=== PATIENT | male | born 1940 | race Caucasian/White ===

== ENCOUNTER 2016-06-07 15:30 | Inpatient (IN) | payer MEDICARE ==
--- NOTE | ~2016-06-07 | HP ---
History And Physical [address] [place]. [address] NAME: SATURNINO ELAINE : 42 STATUS : ADM IN [facility]#: [id number] AGE: 76 ADM/REG DATE : 06/07/16 MR#: [id number] REPORT SERV DATE: 06/07/16 DICTATED BY: SERGEI SILVA DATE: 06/07/16 REPORT STATUS : Draft TRANSCRIBED BY: MODL DATE: 06/07/16 DATE OF ADMISSION: 06/07/2016 REASON FOR ADMISSION: NSTEMI coronary artery disease. HISTORY OF PRESENT ILLNESS: This is a pleasant 76-year-old, obese male with a history of hypertension, type 2 diabetes mellitus, hyperlipidemia, obstructive sleep apnea who presented to the emergency room at [facility] on 06/06/2016 with chest pain, nausea, and shortness of breath. In the emergency room, the patient's symptoms did improve with morphine, aspirin, and nitroglycerin. In the emergency room, his initial troponin was elevated at 0.16 which later priscila to 2.2. His EKG showed sinus tachycardia with right bundle branch block. The patient was admitted with non-ST elevation NH and taken for cardiac catheterization today and found to have severe multivessel coronary artery disease including a 90% mid to distal LAD and 90% first diagonal, 90% proximal second obtuse marginal, 90% proximal first obtuse marginal, 90% proximal RCA, and 50% proximal right PDA. His ejection fraction is calculated around 40% which is down from a previous echocardiogram which he said was done a week ago which showed an ejection fraction of around 65% with no mention of valvular abnormality. Echocardiogram this admission has not been done yet. The patient was transferred here for evaluation of CAB. Of note, the patient has been on Plavix for history of lower extremity stents with last dose on 06/05/2016. Currently, the patient is lying in bed with no complaints of chest pain or shortness of breath. PAST MEDICAL HISTORY: Significant for hypertension, hyperlipidemia, moderate left ventricular hypertrophy with recent ejection fraction around 65%, PVD, mild bilateral carotid disease, AAA measuring around 4.[address] scan, type 2 diabetes mellitus, obstructive sleep apnea compliant with CPAP, obesity, BPH, bursitis, questionable CKD. SURGICAL HISTORY: Left shoulder replacement; L3-L4 back surgery; history of bilateral lower extremity stents, three in his right leg and two in his left; and he has also had a spinal stimulator placed. FAMILY HISTORY: Reviewed and noncontributory. SOCIAL HISTORY: He is a semi-retired business dentist/owner. He is with children. No history of tobacco abuse, use of illicit drugs, or alcohol use. ALLERGIES: NO KNOWN DRUG ALLERGIES. HOME MEDICATIONS: Loratadine 10 mg p.o. daily, fluticasone 1 spray in each nostril every day, Neurontin 300 mg 3 times a day, Plavix 75 mg once daily, nystatin and triamcinolone cream 30 g to affected area as directed, glimepiride 4 mg tab two times a day, metoprolol extended release 100 mg p.o. daily, Valium 5 mg tablet p.o. q.8 hours as needed, Lidocaine ointment 5% topically one to four times per day at site of spinal stimulator as directed, oxycodone 7.5/325 one tab p.o. q.12 hours as needed, atorvastatin 40 mg p.o. daily, vitamin D 69046 units every 2 weeks, Flomax 0.4 mg p.o. daily, metformin 1000 mg p.o. twice a day, dutasteride 0.5 mg p.o. daily, clotrimazole betamethasone 45 g cream to the surrounding area History And Physical [address] [address] NAME: SATURNINO ELAINE : 42 STATUS : ADM IN [facility]#: [id number] AGE: 76 ADM/REG DATE : 06/07/16 MR#: [id number] REPORT SERV DATE: 06/07/16 DICTATED BY: SERGEI SILVA DATE: 06/07/16 REPORT STATUS : Draft TRANSCRIBED BY: QUINCY DATE: 06/07/16 as directed, lisinopril hydrochlorothiazide 20/12.5 once daily, and Singulair 10 mg p.o. daily. ALLERGIES: NO KNOWN DRUG ALLERGIES. REVIEW OF SYSTEMS: Negative other than HPI. LABS: From today white blood cell count 7.5, hemoglobin 12.3, hematocrit 37.7, and platelets 190. From 06/06/2016; sodium 143, potassium 3.7, chloride 101, bicarbonate 28, BUN 21, creatinine 1.3, glucose 300, hemoglobin A1c 5.9. PHYSICAL EXAMINATION: VITAL SIGNS: From today temperature 98 degrees, heart rate 77, blood pressure 141/77, respiratory rate 16, and O2 saturation 96% on 2 L. GENERAL: A pleasant obese male, with no acute distress. NEURO: Alert and oriented x3. Pupils exhibit PERRLA. HEENT: Head is normocephalic and atraumatic. Neck is supple. Sclerae clear. LUNGS: Clear to auscultation bilaterally. Normal effort. CARDIAC: S1, S2 with no murmurs, rubs, or gallops. ABDOMEN: Obese, soft, nontender with active bowel sounds. EXTREMITIES: Free of cyanosis, clubbing, or edema. ASSESSMENT AND PLAN: This is a pleasant 76-year-old, male with an extensive past medical history, who presented to the emergency room yesterday at [facility] with complaints of chest pain and shortness of breath, found to have elevated troponin consistent with NSTEMI taken for cardiac catheterization today and found to have severe 5- vessel coronary artery disease with ejection fraction around 40%. The patient needs a five- vessel CAB. I discussed the risks and benefits of surgery as well as his STS risk scores. STS risk stratification for him in this particular surgery includes an overall mortality of 4.4%, morbidity mortality of 32%. I discussed these findings in relation to expectations for surgery and recovery, and he is willing to proceed. Unfortunately, we will have to wait for 5 days after his last dose of Plavix to begin surgery. I discussed this with him and although he is upset, he is agreeable to wait until Sunday. We will put him on the schedule for Sunday. Until that time, I will request records from Dr. Smith regarding his echocardiogram last week and most recent carotid ultrasound. We will get a noncontrast CT scan of his chest to look at his lungs to rule out any acute process and to evaluate his AAA. I will also get a venous mapping study of his lower extremities to evaluate for conduit and BMP and CBC, and if creatinine is elevated significantly, we would consider Renal consult prior to proceeding with surgery. SHIRA/MODL Sergei Silva NP History And Physical [address] [address] NAME: SATURNINO ELAINE : 44 STATUS : ADM IN [facility]#: [id number] AGE: 76 ADM/REG DATE : 06/07/16 MR#: [id number] REPORT SERV DATE: 06/07/16 DICTATED BY: SERGEI SILVA DATE: 06/07/16 REPORT STATUS : Draft TRANSCRIBED BY: QUINCY DATE: 06/07/16 / [id number] CC: MD Stan Kam
--- NOTE | ~2016-06-07 | CN ---
Consultation Report [address] [place]. [address] NAME: SATURNINO ELAINE : 44 STATUS : ADM IN PAT#: [id number] AGE: 76 ADM/REG DATE : 06/07/16 MR#: [id number] REPORT SERV DATE: 06/13/16 DICTATED BY: SADE NEVAREZ DATE: 06/13/16 REPORT STATUS : Draft TRANSCRIBED BY: MODL DATE: 06/13/16 DATE OF CONSULTATION: CONSULTATION REASON: Diabetic management. HISTORY OF PRESENT ILLNESS: This is a 76-year-old male patient, who is currently admitted after the surgery, CABG under Dr. Serrnao, was consulted for diabetic management. He has been diabetic for many years. He has been on Glucophage and Amaryl at home and his A1c was found to be 6.6. He does check his sugars regularly and he has believed his fasting sugar is running around 130s. Currently, he is on postop insulin drip and the patient has improved and extubated from the ventilator, off all the pressors, and he is prepared to be transferred to the cardiac tele. However, he is not eating the meals here that much. Previously seen, no fever, no chills. No shortness of breath or chest pains. No abdominal pain. Passed gas. No hematuria. The patient has a central line and also a Finn catheter. All fourteen systems are reviewed and negative. PAST MEDICAL HISTORY: 1. Hypertension. 2. Hyperlipidemia. 3. Peripheral vascular disease. 4. AAAs. 5. Diabetes with neuropathy. 6. Sleep apnea. The patient is compliant with the CPAP. 7. Obesity. 8. BPH. 9. Bursitis. 10.More likely CKD. SURGICAL HISTORY: 1. Left shoulder replacement. 2. L3-L4 back surgery. 3. Bilateral leg stents. 4. Spinal stimulator placement. SOCIAL HISTORY: 1. He is a business farm owner operator. 2. He is and has children. Denies any tobacco, drug, and alcohol use. Consultation Report [address] [place]. [address] NAME: SATURNINO ELAINE : 44 STATUS : ADM IN PAT#: [id number] AGE: 76 ADM/REG DATE : 06/07/16 MR#: [id number] REPORT SERV DATE: 06/13/16 DICTATED BY: MINNIESADE DATE: 06/13/16 REPORT STATUS : Draft TRANSCRIBED BY: MODSofi DATE: 06/13/16 ALLERGIES: NO KNOWN DRUG ALLERGIES. MEDICATIONS AT HOME: 1. Lipitor 40 mg once at nighttime. 2. Keflex 500 mg every six hours. 3. Plavix 75 mg once a day. 4. Clotrimazole 45 g twice a day as needed. 5. Valium 5 mg every 8 hours as needed. 6. Avodart 0.5 mg once a day. 7. Vitamin D once a day. 8. Flonase sprays once a day. 9. Neurontin 300 mg three times a day. 10.Amaryl 4 mg twice a day. 11.Lisinopril/hydrochlorothiazide 20/12.5 once a day. 12.Claritin 10 mg once a day. 13.Metformin 1000 mg twice a day. 14.Metoprolol 100 mg once a day. 15.Singulair 10 mg once a day. 16.Nystatin twice a day. 17.Indocet 7.5 mg twice a day. 18.Flomax 0.4 mg once a day. 19.Again, the patient is not using insulin at home. PHYSICAL EXAMINATION: VITAL SIGNS: Blood pressure 114/66, saturation is 92% with 3 L of oxygen. Heart rate 69, respiratory rate was 20. GENERAL APPEARANCE: He is alert, awake, obese, comfortable-looking male patient. NECK: Has a right side IJ central catheter. HEENT: Pupils are equal and round. Conjunctivae not anemic. CHEST: Has rhonchi mainly on the right side, but also has some left side rhonchi and wheezing. CARDIOVASCULAR: Has a regular rhythm and rate. ABDOMEN: Bowel sounds present and obese. EXTREMITIES: Has a trace 1 pitting edema with a DONNA hose stocking on it. LABORATORY: Showed sodium 146, potassium 5.0, chloride 114, bicarb 24, BUN 20, creatinine 1.18, and glucose 111. ASSESSMENT AND PLAN: 1. Diabetes mellitus. 2. Sleep apnea. 3. Status post coronary artery bypass graft. 4. Obesity. 5. Coronary artery disease. Consultation Report [address] [place]. [address] NAME: SATURNINO ELAINE : 44 STATUS : ADM IN PAT#: [id number] AGE: 76 ADM/REG DATE : 06/07/16 MR#: [id number] REPORT SERV DATE: 06/13/16 DICTATED BY: SADE NEVAREZ DATE: 06/13/16 REPORT STATUS : Draft TRANSCRIBED BY: QUINCY DATE: 06/13/16 6. Hypertension. We will transition the insulin drip to subcutaneous insulin and we will follow the clinical response. Thank you for this consultation. SANA/QUINCY Sade Nevarez M.D. / [id number]
--- NOTE | ~2016-06-07 | DS ---
Discharge Summary [facility] [address] [place]. [address] NAME: SATURNINO ELAINE : 44 STATUS : DIS IN PAT#: [id number] AGE: 76 ADM/REG DATE : 06/07/16 MR#: [id number] REPORT SERV DATE: 06/29/16 DICTATED BY: JASON HARRIS DATE: 06/28/16 REPORT STATUS : Draft TRANSCRIBED BY: QUINCY DATE: 06/28/16 Data Collection from hospitalization DISCHARGE DIAGNOSES: 1. Coronary artery disease, status post coronary artery bypass. 2. Chronic systolic heart failure. 3. Type 2 diabetes mellitus. 4. Hyperlipidemia. 5. Acute kidney injury. 6. Hypertension. 7. Peripheral vascular disease. 8. Abdominal aortic aneurysm. 9. Obstructive sleep apnea. 10.Obesity. 11.Benign prostatic hypertrophy. 12.Bursitis. 13.Non-ST elevation myocardial infarction. CONSULTATIONS: Sade Nevarez M.D. PROCEDURES PERFORMED: 1. Median sternotomy due to extracorporeal circulation, extracorporeal circulation, urgent coronary artery bypass grafting x4, transesophageal echocardiogram, endoscopic vein harvest from the right leg, sternal plating with Biomet System, and Prevena dressing placement on 06/12/2016. 2. CT scan of the chest without contrast on 06/07/2016. 3. Vein mapping of the bilateral lower extremities on 06/08/2016. 4. Carotid blood flow study on 06/09/2016. 5. Renal ultrasound on 06/15/2016. MEDICATIONS: Aspirin 81 mg daily, Lipitor 40 mg at bedtime, Plavix 75 mg daily, Avodart 0.5 mg daily, vitamin D 50,000 units every two weeks, Flonase nasal spray one spray nasally daily, Neurontin 300 mg three times a day, Amaryl 4 mg with breakfast and supper, Glucophage 1000 mg with breakfast and supper, Claritin 10 mg daily, Singulair 10 mg daily, Lopressor 12.5 mg every 12 hours, Flomax 0.4 mg daily, Gyne-Lotrimin 45 g vaginally twice a day as needed, nystatin-triamcinolone cream one application topically twice a day, and Roxicodone 5 mg every six hours as needed. CONDITION AT DISCHARGE: Stable. DISPOSITION: The patient was discharged to [facility] on an 1800-calorie cardiac/diabetic diet with activities as instructed. HOSPITAL COURSE: This is a 76-year-old man who has a history of hypertension, type 2 diabetes mellitus, hyperlipidemia, and obstructive sleep apnea who presented to the emergency room at [facility] on 06/06/2016 with chest pain, nausea, and shortness of breath. In the emergency room, the patient's symptoms did improve with morphine, aspirin, and nitroglycerin. In the emergency room, his initial troponin was Discharge Summary [address] [address] NAME: SATURNINO ELAINE : 44 STATUS : DIS IN PAT#: [id number] AGE: 76 ADM/REG DATE : 06/07/16 MR#: [id number] REPORT SERV DATE: 06/29/16 DICTATED BY: JASON HARRIS DATE: 06/28/16 REPORT STATUS : Draft TRANSCRIBED BY: QUINCY DATE: 06/28/16 elevated at 0.16, which later priscila to 2.2. His EKG showed sinus tachycardia with right bundle-branch block. He was felt to have had a non-ST elevation myocardial infarction. He had undergone a cardiac catheterization on the day of this admission and was found to have severe multivessel coronary artery disease including 90% mid to distal LAD and 90% first diagonal, 90% proximal second obtuse marginal, 90% proximal first obtuse marginal, 90% proximal RCA, and 50% proximal right PDA. His ejection fraction was calculated around 40%, which was down from a previous echocardiogram, which he said was done about a week prior to this admission, which revealed ejection fraction around 65% with no mention of valvular abnormality. The patient was transferred here as it was felt that he would need to undergo coronary artery bypass grafting. He was admitted to the hospital for further evaluation and treatment. Upon admission, a CT scan of the chest without contrast was performed. Unfortunately, we would have to wait five days after his last dose of Plavix to begin surgery. This was discussed with the patient, and although he was upset, he was agreeable to wait. The following day, vein mapping of the bilateral lower extremities was performed. Glucose levels were controlled on sliding scale insulin. He was on a statin agent for hyperlipidemia. On 06/09/2016, a carotid blood flow study was performed. He remained stable. Plans were being made to proceed with surgical intervention. On 06/12/2016, the patient was taken to the operating room where he underwent the above-mentioned procedure. He tolerated this well, and there were no complications. On postop day #1, he was seen by Dr. Sade Nevarez regarding diabetic management. He has been a diabetic for many years. He had been on Glucophage and Amaryl at home. His hemoglobin A1c was 6.6. He does check his sugars regularly and he believes that his fasting sugar is running around 130s. Currently, he was postop on an insulin drip. He had been extubated from the ventilator and was off all pressors. He was prepared to be transferred to the Cardiac Telemetry Unit. He was not eating much. Creatinine level was 1.18. We were going to transition the insulin drip to subcutaneous insulin and we would follow the clinical response. Blood pressure was controlled. On 06/14/2016, he had diminished urine output. He has had no issues overnight. He was not eating or drinking well. He has not ambulated as of yet. He had no new complaints. Pacing wires were removed. Amaryl was going to began. Levemir was started. The next day, he said he was feeling better. He was able to move around and sit up in the chair. He was eating a little. He was evaluated by Physical Therapy. He underwent diabetes education. On 06/16/2016, he has had some confusion overnight. He had no major pain complaints. He was mobilizing well. His confusion resolved. IV fluids were stopped. He does use a CPAP for his obstructive sleep apnea. Creatinine level was improving. Discharge planning was performed. Sliding scale insulin and low-dose Amaryl were being given. His Amaryl was increased. On 06/19/2016, he did have a bowel movement. He denied any new problems. He reported having a good appetite. Creatinine level was 1.37. Discharge instructions were given. Due to his improved and stable condition, he was discharged to [facility] with the above-stated instructions. Information collected by: Hanane Grimes I submit the above information as my discharge summary. Discharge Summary [id number] [facility] [place]. [address] NAME: SATURNINO ELAINE : 44 STATUS : DIS IN [facility]#: [id number] AGE: 76 ADM/REG DATE : 06/07/16 MR#: [id number] REPORT SERV DATE: 06/29/16 DICTATED BY: JASON HARRIS DATE: 06/28/16 REPORT STATUS : Draft TRANSCRIBED BY: MODL DATE: 06/28/16 TG/QUINCY Jason Harris MD / [id number] CC: MD KUNAL Kam T[facility]
--- NOTE | ~2016-06-07 | OP ---
Record Of [address] [place]. [address] NAME: SATURNINO VERGARA : 44 STATUS : ADM IN PAT#: [id number] AGE: 76 ADM/REG DATE : 06/07/16 MR#: [id number] REPORT SERV DATE: 06/12/16 DICTATED BY: WILBUR HARRIS DATE: 06/12/16 REPORT STATUS : Draft TRANSCRIBED BY: MODL DATE: 06/12/16 DATE OF PROCEDURE: 06/12/2016 PAYROLL ACCOUNTING SPECIALIST: Bobby Spann. ANESTHESIOLOGIST: Marky Trotter MD REFERRING PHYSICIAN: Dr. Smith from [place]. PREOPERATIVE DIAGNOSES: 1. Zpw-RG-hpcjoenms myocardial infarction. 2. Three-vessel coronary artery disease. 3. Hypertension. 4. Hyperlipidemia. 5. Peripheral vascular disease. 6. Diabetes mellitus type 2. 7. Obstructive sleep apnea. 8. Morbid obesity. 9. Chronic obstructive pulmonary disease. POSTOPERATIVE DIAGNOSES: 1. Nxi-XN-iwxdfhuop myocardial infarction. 2. Three-vessel coronary artery disease. 3. Hypertension. 4. Hyperlipidemia. 5. Peripheral vascular disease. 6. Diabetes mellitus type 2. 7. Obstructive sleep apnea. 8. Morbid obesity. 9. Chronic obstructive pulmonary disease. OPERATION/PROCEDURE PERFORMED: 1. Median sternotomy due to extracorporeal circulation. 2. Extracorporeal circulation. 3. Urgent coronary artery bypass grafting x4. 4. Transesophageal echocardiogram. 5. Endoscopic vein harvest of right leg. 6. Sternal plating with Biomet system. 7. Prevena dressing placement. COMPLICATIONS: None. TUBES AND DRAINS: A 32-Slovenian straight to the left pleural space, 32-Slovenian straight to the mediastinum, atrial and ventricular wires. POSTOPERATIVE CONDITION: Stable to CVICU. Record Of [address] [place]. [address] NAME: SATURNINO VERGARA : 44 STATUS : ADM IN PAT#: [id number] AGE: 76 ADM/REG DATE : 06/07/16 MR#: [id number] REPORT SERV DATE: 06/12/16 DICTATED BY: WILBUR HARRIS DATE: 06/12/16 REPORT STATUS : Draft TRANSCRIBED BY: MODL DATE: 06/12/16 INTRAOPERATIVE FINDINGS: Extremely diffusely diseased coronary arteries. The vein was 5 to 6 mm thick. The mammary was 2 to 3 mm in the outstanding conduit. On transesophageal echo, there was no MR, no AI, no . Only finding of note on the left coronary cusp was slightly thickened with poor excursion, the valve appeared to have normal function with no abnormally high gradient. DETAILS OF CARDIOPULMONARY BYPASS GRAFTIN. Graft #1, left internal mammary artery, left anterior descending, this was 1.75 diffusely diseased target. 2. Reverse greater saphenous vein graft to D1, this was again a 1.75 mm diffusely diseased target. 3. Reverse greater saphenous vein graft to obtuse marginal #1, inferior division, this was 1.75 mm and diffusely diseased. 4. Reverse greater saphenous vein graft to posterior descending artery, this was 2 mm diffusely diseased. INDICATIONS FOR PROCEDURE: Mr. Vergara is a 76-year-old gentleman who has been experiencing chest pain, shortness of breath, who presented to [facility] with complaints of angina and was found to have a mildly elevated troponin and was subsequently hospitalized. He was transferred to [facility] for definitive management, Plavix washout was allowed, and he was brought to the operating room. DETAILS OF PROCEDURE: The patient was brought to the operating room and placed supine on the operating room table. After satisfactory induction of general endotracheal anesthesia, the patient was prepped and draped in the usual sterile fashion. Working simultaneously median sternotomy was performed while endoscopic vein harvest was performed from the right leg. Skin and subcutaneous tissues were divided. Clavipectoral fascia was divided. Sternum was divided in the midline. Hemostasis was obtained. The Rultract retractor was placed and the internal mammary artery was harvested in a pedicle fashion. It was takeoff under the subclavian vein to the bifurcation of the diaphragm. Systemic heparinization was achieved. After three minutes, the pedicle was clipped and divided of the bifurcation, it was infiltrated with papaverine. The Rultract retractor was removed. A 32-Slovenian straight chest tube was placed in the left pleural space and exteriorized. The thymic tissue was divided in the midline. Pericardium was opened. The midline T'd at the diaphragm. Pericardial well was created. Ascending aorta was cannulated at the base of the innominate. Dual stage venous cannula was placed through pursestring in the right atrial appendage. Antegrade root vent cardioplegia tack was placed. The conduit was brought up, reversed, and prepared for bypass. Cardiopulmonary bypass was initiated after documentation of an adequate ACT. The targets were inspected. The posterior descending artery was felt to be diffusely diseased. The obtuse marginal #1 was mostly a lead pipe with the inferior division having one soft spot. The first diagonal was extremely diffusely diseased and the LAD was diffusely plaqued all the way down the artery. The cross-clamp was brought up, heart was arrested with cold antegrade cardioplegia, switching to intermittent aliquots of cold antegrade cardioplegia every 15 to 20 minutes throughout the remainder of the cross- clamp. The vein was reversed and spatulated and grafts were performed as mentioned in the findings. All distal anastomosis were performed with 8-0 Surgipro. Once the three Record Of Operation [facility] [address] [place]. [address] NAME: SATURNINO VERGARA : 44 STATUS : ADM IN PAT#: [id number] AGE: 76 ADM/REG DATE : 06/07/16 MR#: [id number] REPORT SERV DATE: 06/12/16 DICTATED BY: WILBUR HARRIS DATE: 06/12/16 REPORT STATUS : Draft TRANSCRIBED BY: MODSofi DATE: 06/12/16 saphenous vein graft anastomoses had been done, the veins had been cut to length, spatulated, and then three proximal aortotomies were performed enlarged with a 4.5 mm punch and a running continuous anastomosis was performed using a 6-0 Prolene. Vein markers were placed. The AMAYA was then brought down through a wide V in the pericardium. The LAD was opened in a soft spot that I could find. The artery was diffusely diseased and heavily plaqued. The AMAYA was spatulated, cut to length, and then a running continuous anastomosis was performed using 8-0 Surgipro. The artery was checked with a Doppler, at the end of the completion of the anastomosis, there was flow both distal and proximal to the anastomosis and in the graft. Pedicle was attached to the heart in two places using 6-0 Prolene and the cross-clamp was removed. Atrial and ventricular pacing wires were placed. The patient was ultimately able to be weaned from cardiopulmonary bypass without inotropic support. Protamine was administered. The patient was decannulated. All cannulation sites were oversewn with 4-0 Prolene. Hemostasis was obtained. The pericardium was loosely reapproximated over the ascending aorta and the right ventricle. A 32-Slovenian chest tube was placed beneath the sternum. The sternum was reapproximated with eight stainless steel sternal wires, some of these were double wires. In addition, bilateral small pectoral flaps were raised to the edge of the sternum and one 180-degree Biomet blue plate was placed on the manubrium with four #16 screws and then two X plates were placed on the body of the sternum between the wires using eight #16 screws apiece. The clavipectoral fascia was reapproximated using running #1 StrataFix. The subcutaneous tissues closed using running #1 StrataFix and the skin using 2-0 Quill. Prevena dressing was placed. He was transferred to CVICU in critical, stable condition. Pebbles/SHAYLEEL Wilbur Harris MD / [id number] CC: MD Mao Kam M.D.
[~2016-06-07 15:30] MED LIST: AMARYL4 PO; ASA5GR PO; ETODOLAC ER400 MG OR; FLOMAX4 PO; GLUCOPHAGE1000 MG PO; NORV10 PO; TOPXL100 PO; TRICOR145 PO; VYTORIN 10/80 T1 TAB PO; ZESTORETIC PO
[2016-06-07 16:43] LABS: ASCORBIC ACID (UR NOT ORDER) NEG (NEG); BILIRUBIN, URINE NEGATIVE (NEG); KETONE, URINE NEGATIVE (NEG); LEUKOCYTE ESTERASE(NOT OR NEG (NEG); WBC (NOT ORDERED) (RFLEX) 1 (0-5)
[2016-06-07] MEDS ORDERED: LIPITOR40 PO (17:08)
[2016-06-07] MEDS ORDERED: ENDOCET1 TA1 PO (17:09)
[2016-06-07] MEDS ORDERED: AVODART PO (17:10)
[2016-06-07] MEDS ORDERED: VITD PO (17:12)
[2016-06-07] MEDS ORDERED: SINGULAIR1 PO (17:13)
[2016-06-07] MEDS ORDERED: CLARIT10 PO (17:17)
[2016-06-07] MEDS ORDERED: [UNRECOGNIZED DRUG - OTHER] V (17:17)
[2016-06-07] MEDS ORDERED: FLONASE NAS (17:18)
[2016-06-07] MEDS ORDERED: NEUR300 PO (17:18)
[2016-06-07] MEDS ORDERED: PLAVIX PO (17:19)
[2016-06-07] MEDS ORDERED: NYSTATIN-TRIAMC15 GM TOP (17:19)
[2016-06-07] MEDS ORDERED: V5 PO (17:20)
[2016-06-07] MEDS ORDERED: K500 PO (17:20)
[2016-06-07 17:51] LABS: BASOPHILS 0.2 %; BASOPHILS ABSOLUTE 0.01 10/3/uL (0.0-0.16); EOSINOPHILS 3.4 %; EOSINOPHILS ABSOLUTE 0.22 10/3/uL (0.0-0.53); HEMOGLOBIN 12.6 g/dL (13.6-17.8); IMMATURE GRANULOCYTES 0.2 %; IMMATURE GRANULOCYTES ABSOLUTE 0.01 10/3/uL (0.0-0.11); LYMPHOCYTES ABSOLUTE 1.03 10/3/uL (0.67-4.30); MEAN CORPUS HGB CONC 34.1 g/dL (32.0-36.0); MEAN CORPUSCULAR HEMOGLOB 31.7 pg (26.0-34.0); MEAN PLATELET VOLUME 11.8 fL (9.2-13.0); MONOCYTES 10.9 %; NEUTROPHILS 69.3 %; NEUTROPHILS ABSOLUTE 4.47 10/3/uL (2.02-8.40); PLATELET COUNT 137 10/3/uL (150-400); RBC DISTRIBUTION WIDTH 14.3 % (12.0-16.0); WHITE BLOOD CELLS 6.4 10/3/uL (4.5-10.5)
[2016-06-07 17:56] LABS: MANUAL DIFF NO %; MEAN CORPUSCULAR VOLUME 93.2 fL (80-100); RED CELL COUNT 3.97 10/6/uL (4.7-6.1)
[2016-06-07 17:59] LABS: INTERNATIONAL NORMAL RATI 1.1 UNITS (-); PARTIAL THROMBO TIME 30.3 SEC (22.5-37.2); PROTIME (NOT ORD) 14.5 SEC (12.0-14.5)
[2016-06-07 18:03] LABS: BUN (BLOOD UREA NITROGEN) 18 MG/DL (6-23); CALCIUM, SERUM 8.4 MG/DL (8.5-10.4); CHLORIDE, SERUM 106 MMOL/L (96-112); CO2 (CARBON DIOXIDE) 28 MMOL/L (24-34); CREATININE 1.16 MG/DL (0.70-1.30); GFR AFRICAN AMERICAN 72 ML/MIN (>=60); GFR NON AFRICAN AMERICAN 62 ML/MIN (>=60); GLUCOSE, SERUM 156 MG/DL (60-99); POTASSIUM, SERUM 3.9 MMOL/L (3.5-5.3); SODIUM, SERUM 143 MMOL/L (135-148)
[2016-06-07 18:59] LABS: MAX AMP (ADP) 57.3 MM (35-68); TEG - COAGULATION INDEX 1.7 (-3 TO 3); TEG - MAXIMUM AMPLITUDE 66.2 MM (50-70); TEG - RATE 5.5 MIN (5.0-10.0); TEG PLAVIX/EFFIENT/TICLID(ADP) 17.5 % INHIB (< 40)
[2016-06-08 18:06] LABS: ASCORBIC ACID (UR NOT ORDER) NEG (NEG); BILIRUBIN, URINE NEGATIVE (NEG); KETONE, URINE NEGATIVE (NEG); LEUKOCYTE ESTERASE(NOT OR NEG (NEG); WBC (NOT ORDERED) (RFLEX) < 1 (0-5)
[2016-06-09 07:58] LABS: BASOPHILS 0.5 %; BASOPHILS ABSOLUTE 0.03 10/3/uL (0.0-0.16); EOSINOPHILS 3.3 %; EOSINOPHILS ABSOLUTE 0.21 10/3/uL (0.0-0.53); HEMATOCRIT 38.4 % (40.0-51.0); HEMOGLOBIN 12.6 g/dL (13.6-17.8); IMMATURE GRANULOCYTES 0.3 %; IMMATURE GRANULOCYTES ABSOLUTE 0.02 10/3/uL (0.0-0.11); LYMPHOCYTES 18.2 %; LYMPHOCYTES ABSOLUTE 1.16 10/3/uL (0.67-4.30); MEAN CORPUS HGB CONC 32.8 g/dL (32.0-36.0); MEAN CORPUSCULAR HEMOGLOB 30.7 pg (26.0-34.0); MEAN CORPUSCULAR VOLUME 93.4 fL (80-100); MEAN PLATELET VOLUME 12.5 fL (9.2-13.0); MONOCYTES 13.3 %; MONOCYTES ABSOLUTE 0.85 10/3/uL (0.21-1.20); NEUTROPHILS 64.4 %; NEUTROPHILS ABSOLUTE 4.11 10/3/uL (2.02-8.40); PLATELET COUNT 139 10/3/uL (150-400); RBC DISTRIBUTION WIDTH 14.5 % (12.0-16.0); RED CELL COUNT 4.11 10/6/uL (4.7-6.1); WHITE BLOOD CELLS 6.4 10/3/uL (4.5-10.5)
[2016-06-09 07:59] LABS: MANUAL DIFF NO %
[2016-06-09 08:29] LABS: BUN (BLOOD UREA NITROGEN) 17 MG/DL (6-23); CALCIUM, SERUM 8.9 MG/DL (8.5-10.4); CHLORIDE, SERUM 106 MMOL/L (96-112); CO2 (CARBON DIOXIDE) 28 MMOL/L (24-34); CREATININE 1.15 MG/DL (0.70-1.30); GFR AFRICAN AMERICAN 72 ML/MIN (>=60); GFR NON AFRICAN AMERICAN 62 ML/MIN (>=60); GLUCOSE, SERUM 143 MG/DL (60-99); POTASSIUM, SERUM 4.5 MMOL/L (3.5-5.3); SODIUM, SERUM 143 MMOL/L (135-148)
[2016-06-10 01:58] LABS: BASOPHILS 0.4 %; BASOPHILS ABSOLUTE 0.02 10/3/uL (0.0-0.16); EOSINOPHILS 4.4 %; EOSINOPHILS ABSOLUTE 0.23 10/3/uL (0.0-0.53); HEMOGLOBIN 10.8 g/dL (13.6-17.8); IMMATURE GRANULOCYTES 0.6 %; IMMATURE GRANULOCYTES ABSOLUTE 0.03 10/3/uL (0.0-0.11); LYMPHOCYTES 28.7 %; MANUAL DIFF NO %; MEAN CORPUS HGB CONC 32.7 g/dL (32.0-36.0); MEAN CORPUSCULAR HEMOGLOB 30.9 pg (26.0-34.0); MEAN CORPUSCULAR VOLUME 94.3 fL (80-100); MEAN PLATELET VOLUME 12.3 fL (9.2-13.0); MONOCYTES 15.7 %; MONOCYTES ABSOLUTE 0.82 10/3/uL (0.21-1.20); NEUTROPHILS 50.2 %; NEUTROPHILS ABSOLUTE 2.63 10/3/uL (2.02-8.40); PLATELET COUNT 118 10/3/uL (150-400); RBC DISTRIBUTION WIDTH 14.5 % (12.0-16.0); WHITE BLOOD CELLS 5.2 10/3/uL (4.5-10.5)
[2016-06-10 02:06] LABS: BUN (BLOOD UREA NITROGEN) 19 MG/DL (6-23); CALCIUM, SERUM 8.5 MG/DL (8.5-10.4); CHLORIDE, SERUM 108 MMOL/L (96-112); CO2 (CARBON DIOXIDE) 27 MMOL/L (24-34); CREATININE 1.14 MG/DL (0.70-1.30); GFR AFRICAN AMERICAN 73 ML/MIN (>=60); GFR NON AFRICAN AMERICAN 63 ML/MIN (>=60); GLUCOSE, SERUM 126 MG/DL (60-99); POTASSIUM, SERUM 4.2 MMOL/L (3.5-5.3); SODIUM, SERUM 145 MMOL/L (135-148)
[2016-06-12 02:02] LABS: BASOPHILS 0.5 %; BASOPHILS ABSOLUTE 0.03 10/3/uL (0.0-0.16); EOSINOPHILS 3.7 %; EOSINOPHILS ABSOLUTE 0.23 10/3/uL (0.0-0.53); HEMATOCRIT 34.3 % (40.0-51.0); HEMOGLOBIN 11.2 g/dL (13.6-17.8); IMMATURE GRANULOCYTES 0.6 %; IMMATURE GRANULOCYTES ABSOLUTE 0.04 10/3/uL (0.0-0.11); LYMPHOCYTES 21.3 %; LYMPHOCYTES ABSOLUTE 1.31 10/3/uL (0.67-4.30); MEAN CORPUS HGB CONC 32.7 g/dL (32.0-36.0); MEAN CORPUSCULAR HEMOGLOB 31.3 pg (26.0-34.0); MEAN CORPUSCULAR VOLUME 95.8 fL (80-100); MEAN PLATELET VOLUME 11.9 fL (9.2-13.0); MONOCYTES 13.5 %; MONOCYTES ABSOLUTE 0.83 10/3/uL (0.21-1.20); NEUTROPHILS 60.4 %; NEUTROPHILS ABSOLUTE 3.72 10/3/uL (2.02-8.40); PLATELET COUNT 124 10/3/uL (150-400); RBC DISTRIBUTION WIDTH 14.8 % (12.0-16.0); RED CELL COUNT 3.58 10/6/uL (4.7-6.1); WHITE BLOOD CELLS 6.2 10/3/uL (4.5-10.5)
[2016-06-12 02:03] LABS: MANUAL DIFF NO %
[2016-06-12 02:09] LABS: INTERNATIONAL NORMAL RATI 1.1 UNITS (-); PROTIME (NOT ORD) 14.5 SEC (12.0-14.5)
[2016-06-12 02:10] LABS: PARTIAL THROMBO TIME 80.9 SEC (22.5-37.2)
[2016-06-12 02:17] LABS: A/G RATIO 0.9 (0.7-1.9); ALBUMIN 2.9 G/DL (3.5-5.0); ALKALINE PHOSPHATASE 89 U/L (45-117); BUN (BLOOD UREA NITROGEN) 18 MG/DL (6-23); CHLORIDE, SERUM 106 MMOL/L (96-112); CO2 (CARBON DIOXIDE) 28 MMOL/L (24-34); CREATININE 1.14 MG/DL (0.70-1.30); GFR AFRICAN AMERICAN 73 ML/MIN (>=60); GFR NON AFRICAN AMERICAN 63 ML/MIN (>=60); GLOBULIN 3.2 G/DL (2.5-4.1); IRON BINDING CAPACITY 243 MCG/DL (250-450); POTASSIUM, SERUM 4.5 MMOL/L (3.5-5.3); SGOT(AST) 43 U/L (5-40); SGPT(ALT) 59 U/L (5-65); SODIUM, SERUM 142 MMOL/L (135-148); TOTAL BILIRUBIN 0.5 MG/DL (0-1.2); TOTAL PROTEIN 6.1 G/DL (6.0-8.5)
[2016-06-12 02:21] LABS: CALCIUM, SERUM 9.6 MG/DL (8.5-10.4); GLUCOSE, SERUM 164 MG/DL (60-99)
[2016-06-12 03:24] LABS: TEG - ANGLE 68.5 DEG (53-72); TEG - MAXIMUM AMPLITUDE 67.3 MM (50-70); TEG - RATE 7.8 MIN (5.0-10.0)
[2016-06-12 03:25] LABS: TEG PLAVIX/EFFIENT/TICLID(ADP) 1.2 % INHIB (< 40)
[2016-06-12 03:28] LABS: MAX AMP (ADP) 66.8 MM (35-68)
[2016-06-12 13:26] LABS: BE (BASE EXCESS) -3.8 MEQ/L (0 +/- 2.5); CARBOXYHEMOGLOBIN 0.3 % (0-3); HCO3 (ACTUAL BICARBONATE) 22.4 MEQ/L (23-27); HEMOBLOGIN CONTENT 11.3 G/DL (14-18); INSTRUMENT SERIAL # 11843; METHEMOGLOBIN 0.7 % (0-3); MODE SIMV; OPERATOR ID 18642; PCO2 (CO2 TENSION) 46 MMHG (35-45); PO2 (O2 TENSION) 223 MMHG (79-93); SAMPLE Arterial; TIDAL VOLUME 800 ML; pH 7.31 (7.37-7.43)
[2016-06-12 13:50] LABS: HEMATOCRIT 31.7 % (40.0-51.0); HEMOGLOBIN 10.1 g/dL (13.6-17.8); PLATELET COUNT 106 10/3/uL (150-400)
[2016-06-12 13:56] LABS: INTERNATIONAL NORMAL RATI 1.3 UNITS (-); PARTIAL THROMBO TIME 35.6 SEC (22.5-37.2); PROTIME (NOT ORD) 16.2 SEC (12.0-14.5)
[2016-06-12 13:57] LABS: FIBRINOGEN 326 MG/DL (230-462)
[2016-06-12 13:59] LABS: BUN (BLOOD UREA NITROGEN) 16 MG/DL (6-23); CALCIUM, SERUM 10.1 MG/DL (8.5-10.4); CHLORIDE, SERUM 113 MMOL/L (96-112); CO2 (CARBON DIOXIDE) 24 MMOL/L (24-34); CREATININE 1.32 MG/DL (0.70-1.30); GFR AFRICAN AMERICAN 61 ML/MIN (>=60); GFR NON AFRICAN AMERICAN 53 ML/MIN (>=60); GLUCOSE, SERUM 133 MG/DL (60-99); POTASSIUM, SERUM 4.3 MMOL/L (3.5-5.3); SODIUM, SERUM 145 MMOL/L (135-148)
[2016-06-12 18:49] LABS: BE (BASE EXCESS) -4.2 MEQ/L (0 +/- 2.5); CARBOXYHEMOGLOBIN 0.9 % (0-3); DEVICE NC; HCO3 (ACTUAL BICARBONATE) 21.3 MEQ/L (23-27); HEMOBLOGIN CONTENT 12.5 G/DL (14-18); INSTRUMENT SERIAL # 11843; METHEMOGLOBIN 0.5 % (0-3); O2 CONTENT 16.4 VOL% (18-24); OPERATOR ID 13744; PCO2 (CO2 TENSION) 41 MMHG (35-45); PO2 (O2 TENSION) 80 MMHG (79-93); SAMPLE Arterial; pH 7.34 (7.37-7.43)
[2016-06-12 22:58] LABS: BUN (BLOOD UREA NITROGEN) 18 MG/DL (6-23); CALCIUM, SERUM 9.4 MG/DL (8.5-10.4); CHLORIDE, SERUM 113 MMOL/L (96-112); CO2 (CARBON DIOXIDE) 24 MMOL/L (24-34); CREATININE 1.28 MG/DL (0.70-1.30); GFR AFRICAN AMERICAN 63 ML/MIN (>=60); GFR NON AFRICAN AMERICAN 55 ML/MIN (>=60); GLUCOSE, SERUM 112 MG/DL (60-99); POTASSIUM, SERUM 4.7 MMOL/L (3.5-5.3); SODIUM, SERUM 145 MMOL/L (135-148)
[2016-06-13 03:30] LABS: BASOPHILS 0.1 %; BASOPHILS ABSOLUTE 0.01 10/3/uL (0.0-0.16); EOSINOPHILS 0 %; HEMATOCRIT 30.2 % (40.0-51.0); HEMOGLOBIN 9.9 g/dL (13.6-17.8); IMMATURE GRANULOCYTES 0.7 %; IMMATURE GRANULOCYTES ABSOLUTE 0.08 10/3/uL (0.0-0.11); LYMPHOCYTES 3.9 %; LYMPHOCYTES ABSOLUTE 0.44 10/3/uL (0.67-4.30); MEAN CORPUS HGB CONC 32.8 g/dL (32.0-36.0); MEAN CORPUSCULAR HEMOGLOB 31.3 pg (26.0-34.0); MEAN CORPUSCULAR VOLUME 95.6 fL (80-100); MEAN PLATELET VOLUME 12.6 fL (9.2-13.0); MONOCYTES ABSOLUTE 1.34 10/3/uL (0.21-1.20); NEUTROPHILS 83.3 %; NEUTROPHILS ABSOLUTE 9.33 10/3/uL (2.02-8.40); PLATELET COUNT 114 10/3/uL (150-400); RBC DISTRIBUTION WIDTH 14.9 % (12.0-16.0); RED CELL COUNT 3.16 10/6/uL (4.7-6.1)
[2016-06-13 03:31] LABS: MANUAL DIFF NO %; WHITE BLOOD CELLS 11.2 10/3/uL (4.5-10.5)
[2016-06-13 03:42] LABS: BUN (BLOOD UREA NITROGEN) 20 MG/DL (6-23); CHLORIDE, SERUM 114 MMOL/L (96-112); CO2 (CARBON DIOXIDE) 24 MMOL/L (24-34); CREATININE 1.18 MG/DL (0.70-1.30); GFR AFRICAN AMERICAN 70 ML/MIN (>=60); GFR NON AFRICAN AMERICAN 60 ML/MIN (>=60); GLUCOSE, SERUM 111 MG/DL (60-99); SODIUM, SERUM 146 MMOL/L (135-148)
[2016-06-13 15:58] LABS: HEMOGLOBIN 11.3 g/dL (13.6-17.8)
[2016-06-13 15:59] LABS: HEMATOCRIT 34.7 % (40.0-51.0)
[2016-06-13 16:16] LABS: CALCIUM, SERUM 9.6 MG/DL (8.5-10.4); CHLORIDE, SERUM 108 MMOL/L (96-112); CO2 (CARBON DIOXIDE) 26 MMOL/L (24-34); CREATININE 1.38 MG/DL (0.70-1.30); GFR AFRICAN AMERICAN 58 ML/MIN (>=60); GFR NON AFRICAN AMERICAN 50 ML/MIN (>=60); SODIUM, SERUM 142 MMOL/L (135-148)
[2016-06-13 16:17] LABS: BUN (BLOOD UREA NITROGEN) 24 MG/DL (6-23); GLUCOSE, SERUM 184 MG/DL (60-99)
[2016-06-14 06:34] LABS: BASOPHILS 0.2 %; BASOPHILS ABSOLUTE 0.02 10/3/uL (0.0-0.16); EOSINOPHILS 0.2 %; EOSINOPHILS ABSOLUTE 0.03 10/3/uL (0.0-0.53); HEMATOCRIT 33.5 % (40.0-51.0); HEMOGLOBIN 10.7 g/dL (13.6-17.8); IMMATURE GRANULOCYTES 0.8 %; LYMPHOCYTES ABSOLUTE 0.98 10/3/uL (0.67-4.30); MANUAL DIFF NO %; MEAN CORPUS HGB CONC 31.9 g/dL (32.0-36.0); MEAN CORPUSCULAR HEMOGLOB 31.4 pg (26.0-34.0); MEAN CORPUSCULAR VOLUME 98.2 fL (80-100); MEAN PLATELET VOLUME 12.7 fL (9.2-13.0); MONOCYTES 18.1 %; MONOCYTES ABSOLUTE 2.22 10/3/uL (0.21-1.20); NEUTROPHILS 72.7 %; NEUTROPHILS ABSOLUTE 8.92 10/3/uL (2.02-8.40); PLATELET COUNT 160 10/3/uL (150-400); RED CELL COUNT 3.41 10/6/uL (4.7-6.1); WHITE BLOOD CELLS 12.3 10/3/uL (4.5-10.5)
[2016-06-14 06:49] LABS: CALCIUM, SERUM 9.4 MG/DL (8.5-10.4); CHLORIDE, SERUM 109 MMOL/L (96-112); CO2 (CARBON DIOXIDE) 23 MMOL/L (24-34); GFR AFRICAN AMERICAN 38 ML/MIN (>=60); GFR NON AFRICAN AMERICAN 33 ML/MIN (>=60); GLUCOSE, SERUM 190 MG/DL (60-99); POTASSIUM, SERUM 5.1 MMOL/L (3.5-5.3); SODIUM, SERUM 142 MMOL/L (135-148)
[2016-06-14 06:54] LABS: BUN (BLOOD UREA NITROGEN) 35 MG/DL (6-23); CREATININE 1.94 MG/DL (0.70-1.30)
[2016-06-15 05:33] LABS: CALCIUM, SERUM 9.2 MG/DL (8.5-10.4); CHLORIDE, SERUM 111 MMOL/L (96-112); CO2 (CARBON DIOXIDE) 26 MMOL/L (24-34); CREATININE 2.07 MG/DL (0.70-1.30); GFR AFRICAN AMERICAN 35 ML/MIN (>=60); GFR NON AFRICAN AMERICAN 31 ML/MIN (>=60); GLUCOSE, SERUM 158 MG/DL (60-99); POTASSIUM, SERUM 4.5 MMOL/L (3.5-5.3); SODIUM, SERUM 145 MMOL/L (135-148)
[2016-06-15 05:34] LABS: BUN (BLOOD UREA NITROGEN) 52 MG/DL (6-23)
[2016-06-15 05:41] LABS: BASOPHILS 0.3 %; BASOPHILS ABSOLUTE 0.02 10/3/uL (0.0-0.16); EOSINOPHILS 1.5 %; EOSINOPHILS ABSOLUTE 0.11 10/3/uL (0.0-0.53); HEMOGLOBIN 9.1 g/dL (13.6-17.8); IMMATURE GRANULOCYTES 0.4 %; IMMATURE GRANULOCYTES ABSOLUTE 0.03 10/3/uL (0.0-0.11); LYMPHOCYTES 12.3 %; MEAN CORPUS HGB CONC 32.2 g/dL (32.0-36.0); MEAN CORPUSCULAR HEMOGLOB 30.6 pg (26.0-34.0); MEAN CORPUSCULAR VOLUME 95.3 fL (80-100); MEAN PLATELET VOLUME 12.2 fL (9.2-13.0); MONOCYTES 15.3 %; MONOCYTES ABSOLUTE 1.12 10/3/uL (0.21-1.20); NEUTROPHILS 70.2 %; NEUTROPHILS ABSOLUTE 5.13 10/3/uL (2.02-8.40); PLATELET COUNT 131 10/3/uL (150-400); RED CELL COUNT 2.97 10/6/uL (4.7-6.1)
[2016-06-15 05:44] LABS: HEMATOCRIT 28.3 % (40.0-51.0); MANUAL DIFF NO %; WHITE BLOOD CELLS 7.3 10/3/uL (4.5-10.5)
[2016-06-16 06:21] LABS: BASOPHILS 0.2 %; BASOPHILS ABSOLUTE 0.01 10/3/uL (0.0-0.16); EOSINOPHILS 3.2 %; EOSINOPHILS ABSOLUTE 0.18 10/3/uL (0.0-0.53); HEMOGLOBIN 9.2 g/dL (13.6-17.8); IMMATURE GRANULOCYTES 0.4 %; IMMATURE GRANULOCYTES ABSOLUTE 0.02 10/3/uL (0.0-0.11); LYMPHOCYTES 10.2 %; LYMPHOCYTES ABSOLUTE 0.58 10/3/uL (0.67-4.30); MEAN CORPUS HGB CONC 31.7 g/dL (32.0-36.0); MEAN CORPUSCULAR HEMOGLOB 31.2 pg (26.0-34.0); MEAN PLATELET VOLUME 11.5 fL (9.2-13.0); MONOCYTES 11.9 %; MONOCYTES ABSOLUTE 0.68 10/3/uL (0.21-1.20); NEUTROPHILS 74.1 %; NEUTROPHILS ABSOLUTE 4.23 10/3/uL (2.02-8.40); PLATELET COUNT 145 10/3/uL (150-400); RBC DISTRIBUTION WIDTH 15.7 % (12.0-16.0); RED CELL COUNT 2.95 10/6/uL (4.7-6.1); WHITE BLOOD CELLS 5.7 10/3/uL (4.5-10.5)
[2016-06-16 06:23] LABS: MANUAL DIFF NO %; MEAN CORPUSCULAR VOLUME 98.3 fL (80-100)
[2016-06-16 06:28] LABS: CHLORIDE, SERUM 112 MMOL/L (96-112); CO2 (CARBON DIOXIDE) 28 MMOL/L (24-34); CREATININE 1.69 MG/DL (0.70-1.30); GFR AFRICAN AMERICAN 45 ML/MIN (>=60); GFR NON AFRICAN AMERICAN 39 ML/MIN (>=60); GLUCOSE, SERUM 142 MG/DL (60-99); POTASSIUM, SERUM 4.9 MMOL/L (3.5-5.3); SODIUM, SERUM 146 MMOL/L (135-148)
[2016-06-16 06:29] LABS: BUN (BLOOD UREA NITROGEN) 48 MG/DL (6-23)
[2016-06-17 05:16] LABS: BASOPHILS 0.4 %; BASOPHILS ABSOLUTE 0.02 10/3/uL (0.0-0.16); EOSINOPHILS 5.1 %; EOSINOPHILS ABSOLUTE 0.27 10/3/uL (0.0-0.53); HEMATOCRIT 30.2 % (40.0-51.0); HEMOGLOBIN 9.9 g/dL (13.6-17.8); IMMATURE GRANULOCYTES 0.9 %; IMMATURE GRANULOCYTES ABSOLUTE 0.05 10/3/uL (0.0-0.11); LYMPHOCYTES 13.9 %; LYMPHOCYTES ABSOLUTE 0.73 10/3/uL (0.67-4.30); MEAN CORPUS HGB CONC 32.8 g/dL (32.0-36.0); MEAN CORPUSCULAR HEMOGLOB 31.6 pg (26.0-34.0); MEAN CORPUSCULAR VOLUME 96.5 fL (80-100); MEAN PLATELET VOLUME 11.2 fL (9.2-13.0); MONOCYTES 14.4 %; MONOCYTES ABSOLUTE 0.76 10/3/uL (0.21-1.20); NEUTROPHILS 65.3 %; NEUTROPHILS ABSOLUTE 3.44 10/3/uL (2.02-8.40); PLATELET COUNT 183 10/3/uL (150-400); RBC DISTRIBUTION WIDTH 15.6 % (12.0-16.0); RED CELL COUNT 3.13 10/6/uL (4.7-6.1); WHITE BLOOD CELLS 5.3 10/3/uL (4.5-10.5)
[2016-06-17 05:19] LABS: MANUAL DIFF NO %
[2016-06-17 05:32] LABS: CALCIUM, SERUM 9.9 MG/DL (8.5-10.4); CHLORIDE, SERUM 111 MMOL/L (96-112); CO2 (CARBON DIOXIDE) 25 MMOL/L (24-34); CREATININE 1.47 MG/DL (0.70-1.30); GFR AFRICAN AMERICAN 54 ML/MIN (>=60); GFR NON AFRICAN AMERICAN 46 ML/MIN (>=60); GLUCOSE, SERUM 150 MG/DL (60-99); POTASSIUM, SERUM 4.2 MMOL/L (3.5-5.3); SODIUM, SERUM 147 MMOL/L (135-148)
[2016-06-17 05:33] LABS: BUN (BLOOD UREA NITROGEN) 42 MG/DL (6-23)
[2016-06-18 04:55] LABS: ALBUMIN 2.6 G/DL (3.5-5.0); CALCIUM, SERUM 9.5 MG/DL (8.5-10.4); CHLORIDE, SERUM 109 MMOL/L (96-112); CO2 (CARBON DIOXIDE) 28 MMOL/L (24-34); CREATININE 1.28 MG/DL (0.70-1.30); GFR AFRICAN AMERICAN 63 ML/MIN (>=60); GFR NON AFRICAN AMERICAN 55 ML/MIN (>=60); GLUCOSE, SERUM 150 MG/DL (60-99); PHOSPHORUS, SERUM 3.9 MG/DL (2.5-4.5); POTASSIUM, SERUM 4.5 MMOL/L (3.5-5.3); SODIUM, SERUM 145 MMOL/L (135-148)
[2016-06-18 04:56] LABS: BUN (BLOOD UREA NITROGEN) 35 MG/DL (6-23)
[2016-06-19 06:16] LABS: ALBUMIN 2.3 G/DL (3.5-5.0); BUN (BLOOD UREA NITROGEN) 35 MG/DL (6-23); CALCIUM, SERUM 8.9 MG/DL (8.5-10.4); CHLORIDE, SERUM 107 MMOL/L (96-112); CO2 (CARBON DIOXIDE) 28 MMOL/L (24-34); CREATININE 1.37 MG/DL (0.70-1.30); GFR AFRICAN AMERICAN 58 ML/MIN (>=60); GFR NON AFRICAN AMERICAN 50 ML/MIN (>=60); GLUCOSE, SERUM 126 MG/DL (60-99); POTASSIUM, SERUM 4.5 MMOL/L (3.5-5.3); SODIUM, SERUM 144 MMOL/L (135-148)
== END 2016-06-19 18:50 | DRG 236 ==
LOC: 5NO 15:30 → SDC/OF 06-12 06:34 → CVICU 06-12 09:29 → 5NO 06-13 13:45
PROVIDERS: Anesthesiology; Internal Medicine; Nurse Practitioner Family; Thoracic Surgery (Cardiothoracic Vascular Surgery)
PROC: 06BP4ZZ Excision of Right Saphenous Vein, Percutaneous Endoscopic Approach (ICD-10-PCS; 2016-06-12)
PROC: 0PH000Z Insertion of Rigid Plate Internal Fixation Device into Sternum, Open Approach (ICD-10-PCS; 2016-06-12)
PROC: 5A1221Z Performance of Cardiac Output, Continuous (ICD-10-PCS; 2016-06-12)
PROC: B246ZZ4 Ultrasonography of Right and Left Heart, Transesophageal (ICD-10-PCS; 2016-06-12)
PROC: 021209W Bypass Coronary Artery, Three Arteries from Aorta with Autologous Venous Tissue, Open Approach (ICD-10-PCS; principal; 2016-06-12 07:30)
PROC: 0210099 Bypass Coronary Artery, One Artery from Left Internal Mammary with Autologous Venous Tissue, Open Approach (ICD-10-PCS; 2016-06-12 07:30)
DX: I21.4 Non-ST elevation (NSTEMI) myocardial infarction (principal); N17.9 Acute kidney failure, unspecified; E11.42 Type 2 diabetes mellitus with diabetic polyneuropathy; I11.0 Hypertensive heart disease with heart failure; I50.22 Chronic systolic (congestive) heart failure; E66.01 Morbid (severe) obesity due to excess calories; I25.10 Atherosclerotic heart disease of native coronary artery without angina pectoris; E78.5 Hyperlipidemia, unspecified; G47.33 Obstructive sleep apnea (adult) (pediatric); Z79.899 Other long term (current) drug therapy; Z79.84 Long term (current) use of oral hypoglycemic drugs; N40.0 Benign prostatic hyperplasia without lower urinary tract symptoms; Z96.612 Presence of left artificial shoulder joint; Z79.02 Long term (current) use of antithrombotics/antiplatelets; J44.9 Chronic obstructive pulmonary disease, unspecified; Z68.38 Body mass index [BMI] 38.0-38.9, adult
CPT/HCPCS: 31720; 36415; 71010; 71020; 71250; 76775; 80048; 80053; 80069; 81001; 82330; 82570; 82803; 82805; 82947; 82962; 83036; 83550; 83735; 84132; 84295; 84300; 85014; 85018; 85025; 85049; 85347; 85384; 85576; 85576-59; 85610; 85730; 86850; 86900; 86901; 86920; 87641; 93005; 93312; 93320; 93325; 93880; 94002; 94010; 94640; 94660; 94770; 97110-GP; 97116-GP; 97162-GP; A9270-GY; C1713; C1769; C1776; C1781; C1894; G0365; J0690; J1644; J2150; J2250; J2370; J2440; J2720; J2930; J3010; J3370; J3475; J3480; P9045; P9047